=== PATIENT | male | born 1975 | race African-American/Black ===

== ENCOUNTER 2018-11-05 00:47 | Emergency (ER) | payer MEDICAID ==
[~2018-11-05] VITALS: Ht 177.8 cm; Wt 82.0 kg
[2018-11-05] MEDS ORDERED: NAPROXEN 375MG TABLET PO ONE (04:15)
[2018-11-05 04:30] VITALS: BP 124/72
== END 2018-11-05 04:31 | disposition home or self-care (01) ==
LOC: ER 00:47
DX: G56.02 Carpal tunnel syndrome, left upper limb (principal); F17.200 Nicotine dependence, unspecified, uncomplicated
CPT/HCPCS: 99282